=== PATIENT | male | born 1985 | race Two or more races ===

== ENCOUNTER → 2019-11-08 | Outpatient (CLI) | payer OTHER ==
[~2019-11-08] MED LIST: TOPROL XL100 MG PO
--- NOTE | 2019-11-08 18:18 | Diagnostic Imaging Report ---
EXAM: Abdomen 2 Views INDICATION: ^[id number] ^[id number] ^HISTORY OF KIDNEY STONE COMPARISON: [facility] 10/17/2016 FINDINGS: Lines/tubes: None. Mild amount of stool in the colon. No dilated loops of small bowel. Previously noted right renal stone is not seen on this exam. Questionable 2 mm calcified stone in the inferior left kidney. No abnormal soft tissue masses. No degenerative changes in the lumbar spine and pelvis. IMPRESSION: 1. Questionable left nephrolithiasis. 2. Previously noted right nephrolithiasis is not seen on this exam. Signed by: Dr. Cassy Canseco M.D. on 11/08/2019 6:15 PM
== END ==
LOC: RAD 16:31
PROVIDERS: ATTEND Urology
DX: N20.0 Calculus of kidney (principal)
CPT/HCPCS: 74018